=== PATIENT | female | born 1990 | race Caucasian/White ===

== ENCOUNTER 2019-12-22 19:44 | Emergency (ER) | payer OTHER ==
[~2019-12-22] VITALS: Ht 167.6 cm; Wt 64.0 kg
[~2019-12-22 19:44] MED LIST: CEPHALEXIN500 M1 PO; DICLOFENAC SODI75 MG PO; HUMIRA40 MG/0.8 SQ; HYDROCODON-ACE1 EACH PO; METHOTREXATE2.5 MG PO; PREDNISONE1 MG PO; PREDNISONE5 MG PO
--- NOTE | 2019-12-22 20:09 | Emergency Department Note ---
History of Present Illnes History of Present Illness Chief Complaint: Skin Rash or Abscess History of Present Illness This is a 29 year old female, with a history of rheumatoid arthritis for the past 11 years, who presents for evaluation of a rash that is located on both lateral thighs, that has been present for the past 4 weeks. Patient states that @ 6 weeks ago, she was changed from the oral methotrexate to an injectable form of methotrexate. Patient states that she was taking the injections daily, and after the third injection, she developed the rash on both lateral thighs, that is raised, erythematous, and pruritic. Patient mentioned this to her Card Reader, who discontinued the injectable methotrexate and put her back on the oral methotrexate. Patient has been back on oral methotrexate for at least the past 2 weeks. Patient has also tried applying cortisone cream to the rash, without relief of symptoms. Patient denies any fever, chills, nausea, vomiting, abdominal pain, spreading rash to any other area of the body, chest tightness, shortness of breath, tongue or lip swelling, or difficulty swallowing. 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: No Onset (how long ago): week(s) (4) Location: bilateral, lateral thighs Quality: pruritic Radiation: Reports non-radiation; Denies abdomen Severity: moderate Onset quality: sudden Duration (how long): week(s) (4) Timing of current episode: constant Progression: unchanged Chronicity: new Context: Reports new medications (see HPI;) Relieving factors: none Exacerbating factors: none Associated symptoms: Reports rash (see HPI); Denies confusion, Denies chest pain, Denies cough, Denies fever/chills, Denies headaches, Denies nausea/vomiting, Denies shortness of breath Treatments prior to arrival: other (Topical ) Past Medical/Family History Physician Review I have reviewed the patient's past medical and family history. Any updates have been documented here. Past Medical History Recent Fever: No Past Medical History: None Other Medical History: RA Past Surgical History: Appendectomy, T&A Social History Smoking Cessation: Never Smoker Alcohol Use: None Any Illegal Drug Use: No TB Exposure/Symptoms: No Physically hurt or threatened: No Family History Family history of heart diseas: No Other Last Tetanus: unknown Any Pre-Existing Lines (PICC,: No Is patient up to date on immun: No Review of Systems Review of Systems Constitutional: Denies chills, Denies fever EENTM: Reports no symptoms Cardiovascular: Denies chest pain, Denies edema, Denies palpitations Gastrointestinal: Reports no symptoms; Denies nausea, Denies vomiting Genitourinary: Denies dysuria, Denies frequency Musculoskeletal: Reports joint pain (chronic, mainly symmetric small joints;); Denies muscle stiffness, Denies neck pain Integumentary: Reports rash (bilateral, lateral thighs;); Denies dryness Neurological: Denies no symptoms Endocrine: Reports no symptoms Hematological/Lymphatic: Reports no symptoms Review of other systems: All other systems negative Physical Exam Related Data Allergies: Coded Allergies: No Known Allergies (Unverified , 06/17/13) Vital signs reviewed: Yes Physical Exam CONSTITUTIONAL Constitutional: Present well-developed, Present well-nourished HENT HENT: Present normocephalic, Present atraumatic, Present oropharynx clear/moist, Present nose normal HENT L/R: Present left ext ear normal, Present right ext ear normal EYES Eyes: Reports PERRL, Reports conjunctivae normal NECK Neck: Present ROM normal PULMONARY Pulmonary: Present effort normal, Present breath sounds normal CARDIOVASCULAR Cardiovascular: Present regular rhythm, Present heart sounds normal, Present capillary refill normal, Present normal rate GASTROINTESTINAL GENITOURINARY Genitourinary: Present exam deferred SKIN Skin: Present rash MUSCULOSKELETAL Musculoskeletal: Present ROM normal NEUROLOGICAL Neurological: Present alert, Present oriented x 3, Present no gross motor or sensory deficits PSYCHOLOGICAL Psychological: Present mood/affect normal, Present judgement normal Exam - additional comments small (dime sized) raised ,erythematous, macules, grouped together over the lateral thighs, just below the greater trochanters, without warmth or flucutance, non-tender to touch,; Assessment & Plan Medical Decision Making MDM - Discussed with patient that her rash may be due to the injectable methotrexate that she had previously taken, but that the rash is an unusual distribution, overlying both lateral thighs; - Patient is strongly encouraged to make an appointment to follow-up with her general handling supervisor, RENEE, to allow them to visualize the rash, and to see if this could be a complication or manifestation of rheumatoid arthritis. She may also need to be referred to a barrel builder for further evaluation. - Explained to patient that we will treat her symptoms with course of oral steroids, which should resolve the symptoms, if this is truly due to an allergic response. Patient is having no systemic symptoms of anaphylaxis. She has been off the injectable methotrexate for at least 4 weeks. - She may try Sarna lotion, apply it to the rash, to help soothe the irritation. - Patient was understanding the plan. Assessment & Plan Final Impression: (1) Urticarial rash (2) Rash in adult (3) Rheumatoid arthritis Depart Disposition: HOME, SELF-detention Meds Active Scripts Famotidine (FAMOTIDINE) 20 Mg Tab, 1 TAB PO BID for rash for 14 Days, #28 TAB Prov:GIANLUCA FREEMAN MD 12/22/19 Prednisone (PREDNISONE) 20 Mg Tab, 1 TAB PO BID PRN for as directed for 10 Days, #15 TAB 0 Refills 1 po bid x 5 days, then 1 po daily x 5 days, then stop, for rash. Prov:GIANLUCA FREEMAN MD 12/22/19 Reported Medications Cephalexin (CEPHALEXIN) 500 Mg Tablet, 500 MG PO QID 06/17/13 Hydrocodone Bit/Acetaminophen (HYDROCODON-ACETAMINOPHEN 5-500) 1 Each Capsule, PO PRN 06/17/13 Adalimumab (HUMIRA) 40 Mg/0.8 Ml Kit, SQ EVERY OTHER WK 06/17/13 Prednisone (PREDNISONE) 1 Mg Tablet, 1 MG PO PRN 06/17/13 Prednisone (PREDNISONE) 5 Mg Tablet, 5 MG PO PRN 06/17/13 Methotrexate Sodium (METHOTREXATE) 2.5 Mg Tablet, 2.5 MG PO 5WKLY 06/17/13 Diclofenac Sodium (DICLOFENAC SODIUM) 75 Mg Tablet.dr, 75 MG PO BID 06/17/13 GIANLUCA FREEMAN MD Dec 22, 2019 20:09
[2019-12-22] MEDS ORDERED: PREDNISONE20 MG PO (20:25)
[2019-12-22] MEDS ORDERED: PREDNISONE 20 MG TAB ONE (20:25)
[2019-12-22] MEDS ORDERED: FAMOTIDINE20 MG PO (20:30)
[2019-12-22] MEDS ORDERED: PREDNISONE 20 MG TAB PO ONE (20:30)
== END 2019-12-22 20:47 | disposition home or self-care (01) ==
LOC: FSED 19:50
DX: R21 Rash and other nonspecific skin eruption (principal); L50.9 Urticaria, unspecified; M06.9 Rheumatoid arthritis, unspecified
CPT/HCPCS: 99283; J7512